=== PATIENT | male | born 1995 ===

== ENCOUNTER 2021-10-15 23:45 | Emergency (ER) | payer SELFPAY | END 2021-10-15 23:55 | disposition left against medical advice (07) | LOC: ED 23:45 | DX: T50.901A Poisoning by unspecified drugs, medicaments and biological substances, accidental (unintentional), initial encounter (principal); Z53.21 Procedure and treatment not carried out due to patient leaving prior to being seen by health care provider; Y92.89 Other specified places as the place of occurrence of the external cause ==